=== PATIENT | male | born 1955 | race Caucasian/White ===

== ENCOUNTER → 2017-05-03 | Outpatient (CLI) | payer BC ==
[~2017-05-03] MED LIST: ASPI81TA94 PO; IBUP200C74 PO; METH4TAB66 PO
== END ==
LOC: LAB 10:49
PROVIDERS: ATTEND Otolaryngology
DX: J02.9 Acute pharyngitis, unspecified (principal)
CPT/HCPCS: 87070

== ENCOUNTER → 2017-05-18 | Outpatient (CLI) | payer BC | LOC: AUD 09:30 | PROVIDERS: ATTEND Otolaryngology | DX: R42 Dizziness and giddiness (principal); H93.19 Tinnitus, unspecified ear | CPT/HCPCS: 92557; 92570 ==